=== PATIENT | male | born 2005 | race Two or more races ===

== ENCOUNTER 2025-08-07 10:36 | Emergency (ER) | payer OTHER ==
[~2025-08-07] VITALS: Ht 170.2 cm; Wt 118.4 kg
[2025-08-07 10:58] VITALS: BP 121/64; O2SAT 98
[2025-08-07] MEDS ORDERED: VYVANSE30 MG (11:05)
[2025-08-07] MEDS ORDERED: VYVANSE40 MG (11:07)
[2025-08-07] MEDS ORDERED: CETIRIZINE HCL 5MG/5ML BLIST.PACK PO STA (11:18)
[2025-08-07] MEDS ORDERED: GUAIFEN/DEXTROMETHORPHAN/PE PED LIQUID PO STA (11:18)
[2025-08-07] MEDS ORDERED: METHYLPREDNISOLONE SOD SUCC 40 MG VIAL IM STA (11:20)
[2025-08-07] MEDS ORDERED: ALBUTEROL SULFATE 3 ML/2.5 MG AMPUL.NEB IH SCH (11:30)
[2025-08-07] MEDS ORDERED: WATER FOR INJ.,BACTERIOSTATIC 30 ML VIAL IJ ONE (11:37)
[2025-08-07] MEDS ORDERED: METHYLPREDNISOLONE SOD SUCC 125 MG VIAL ONE (11:37)
[2025-08-07] MEDS ORDERED: CETIRIZINE HCL 5MG/5ML BLIST.PACK PO ONE (11:37)
[2025-08-07 12:06] LABS: BASO % 0.6 % (0.1-1.2); EOS # 0.41 (0.04-0.54); EOS % 4.1 % (0.7-7.0); LYMPH # 2.33 (1.18-3.74); LYMPH % 23.3 % (19.3-53.1); MEAN PLATELET VOLUME 10.00 fl (9.4-12.4); MONO # 0.55 (0.24-0.82); MONO % 5.5 % (4.7-12.5); NEUT # 6.61 (1.56-6.13); NEUT % 66.2 % (34.0-71.1); RED CELL DISTRIBUTION WIDTH 14.6 % (11.6-14.4)
[2025-08-07 12:50] LABS: COVID-19 AG NEGATIVE (NEGATIVE)
[2025-08-07] MEDS ORDERED: ALBUTEROL SULFATE 3 ML/2.5 MG AMPUL.NEB IH ONE (12:53)
[2025-08-07] MEDS ORDERED: DEXAMETHASONE6 MG PO (13:39)
[2025-08-07] MEDS ORDERED: ALBUTEROL2.5 MG/3 M IH (13:39)
[2025-08-07] MEDS ORDERED: ZITHROMAX200 MG PO (13:39)
[2025-08-07] MEDS ORDERED: BENZONATATE100 MG PO (13:39)
== END 2025-08-07 13:44 | disposition home or self-care (01) ==
LOC: ER 10:37 → EMR PED 11:11
PROVIDERS: Pediatrics
DX: J98.01 Acute bronchospasm (principal); Z20.822 Contact with and (suspected) exposure to COVID-19; F84.0 Autistic disorder